=== PATIENT | female | born 1980 | race Caucasian/White ===

== ENCOUNTER 2017-05-12 21:26 | Emergency (ER) | payer OTHER ==
[~2017-05-12] VITALS: Ht 180.3 cm; Wt 117.9 kg
--- NOTE | 2017-05-12 23:06 | PHYS DOC ---
Past Medical History Past Medical History: Diabetes-Type II Additional Past Surgical Histo: C section (x2); left ankle; left wrist Smoking: Quit Less Than 1 Year Adult General Chief Complaint Chief Complaint: ABDOMINAL PAIN HPI HPI Patient is a 36 year old female who presents with pain over her incision. She is a status post , 04/16/17, at [facility] (Surgeon was Dr. Lincoln). She states she started with some pain and redness was seen in the office on Sunday. Started on Bactrim at that time. She is not breast-feeding. She returns tonight here at [place] because the pain has increased dramatically. She has difficulty sitting up because of the pain, and any walking hurts. No fever documented at home. She also been having some shortness of air with a rare cough started yesterday. No chest pain. No leg pain or swelling. Review of Systems Review of Systems Constitutional: Denies fever or chills [ Eyes: Denies change in visual acuity, redness, or eye pain HENT: Denies nasal congestion or sore throat Respiratory: some cough and shortness of breath Cardiovascular: No chest pain GI: Denies nausea, vomiting, bloody stools or diarrhea. She has pain over her lower abdomen involving the incision and spreading out laterally. : Denies dysuria or hematuria Musculoskeletal: Denies back pain or joint pain Integument: Denies rash or skin lesions Neurologic: Denies headache, focal weakness or sensory changes Current Medications Current Medications Current Medications Medications (Trade) Dose Ordered Sig/Anibal Start Time Stop Time Status Last Admin Dose Admin Clindamycin Phosphate 50 ml @ 100 mls/hr 1X ONCE 05/13/17 02:30 05/13/17 02:59 Info (Do NOT chart on this entry -- for MONITORING) 1 each PRN DAILY PRN 05/13/17 00:45 05/15/17 00:44 Iohexol (Omnipaque 300 Mg/ml) 75 ml 1X ONCE 05/13/17 01:00 05/13/17 01:01 DC 05/13/17 00:56 75 ML Sodium Chloride 1,000 ml @ 1,000 mls/hr 1X ONCE 05/13/17 00:45 05/13/17 01:44 DC 05/13/17 01:59 1,000 MLS/HR Vancomycin HCl (Vanco Per Pharmacy) 1 each PRN DAILY PRN 05/13/17 02:30 Vancomycin HCl 2 gm/Sodium Chloride 500 ml @ 250 mls/hr 1X ONCE 05/13/17 03:00 05/13/17 04:59 Allergies Allergies Allergies Coded Allergies Type Severity Reaction Last Updated Verified Penicillins Allergy Intermediate 05/12/17 Yes Sulfa (Sulfonamide Antibiotics) Allergy Intermediate 05/12/17 Yes adhesive Allergy Intermediate 05/12/17 Yes latex Allergy Intermediate 05/12/17 Yes Physical Exam Physical Exam Constitutional: Obese Well developed, well nourished, no acute distress, non- toxic appearance. HENT: Normocephalic, atraumatic, bilateral external ears normal, oropharynx moist, no oral exudates, nose normal. Eyes: PERRLA, EOMI, conjunctiva normal, no discharge. Neck: Normal range of motion, no tenderness, supple, no stridor. Cardiovascular:Heart rate regular rhythm, no murmur Lungs & Thorax: Bilateral breath sounds clear to auscultation Abdomen: Bowel sounds normal, soft, Tender along lower abdomen. Incision with swelling and induration extending 5 cm out. There is a central area that is full and fluctuant. No spontaneous drainage. Skin: Warm, dry, no erythema, no rash. Back: No tenderness, no CVA tenderness. Extremities: No tenderness, no cyanosis, no clubbing, ROM intact, no edema. Neurologic: Alert and oriented X 3, normal motor function, normal sensory function, no focal deficits noted. Psychologic: Affect normal, judgement normal, mood normal. Current Patient Data Vital Signs Vital Signs Date Time Temp Pulse Resp B/P (MAP) Pulse Ox O2 Delivery O2 Flow Rate FiO2 05/13/17 00:00 90 20 122/72 (89) 97 Room Air 05/12/17 23:00 98.1 98.1 Lab Values Laboratory Tests Test 05/12/17 23:10 05/13/17 00:13 White Blood Count 9.8 x10^3/uL (4.0-11.0) Red Blood Count 3.79 x10^6/uL (3.50-5.40) Hemoglobin 10.3 g/dL (12.0-15.5) L Hematocrit 31.9 % (36.0-47.0) L Mean Corpuscular Volume 84 fL (79-100) Mean Corpuscular Hemoglobin 27 pg (25-35) Mean Corpuscular Hemoglobin Concent 32 g/dL (31-37) Red Cell Distribution Width 15.9 % (11.5-14.5) H Platelet Count 600 x10^3/uL (140-400) H Neutrophils (%) (Auto) 77 % (31-73) H Lymphocytes (%) (Auto) 14 % (24-48) L Monocytes (%) (Auto) 7 % (0-9) Eosinophils (%) (Auto) 1 % (0-3) Basophils (%) (Auto) 1 % (0-3) Neutrophils # (Auto) 7.5 x10^3uL (1.8-7.7) Lymphocytes # (Auto) 1.4 x10^3/uL (1.0-4.8) Monocytes # (Auto) 0.7 x10^3/uL (0.0-1.1) Eosinophils # (Auto) 0.1 x10^3/uL (0.0-0.7) Basophils # (Auto) 0.1 x10^3/uL (0.0-0.2) D-Dimer (Tracee) 2.46 ug/mlFEU (0.00-0.50) H Sodium Level 140 mmol/L (136-145) Potassium Level 4.1 mmol/L (3.5-5.1) Chloride Level 102 mmol/L (98-107) Carbon Dioxide Level 29 mmol/L (21-32) Anion Gap 9 (6-14) Blood Urea Nitrogen 16 mg/dL (7-20) Creatinine 1.0 mg/dL (0.6-1.0) Estimated GFR (Cockcroft-Gault) 62.4 BUN/Creatinine Ratio 16 (6-20) Glucose Level 169 mg/dL (70-99) H Lactic Acid Level 1.0 mmol/L (0.4-2.0) Calcium Level 8.7 mg/dL (8.5-10.1) Total Bilirubin 0.1 mg/dL (0.2-1.0) L Aspartate Amino Transferase (AST) 12 U/L (15-37) L Alanine Aminotransferase (ALT) 8 U/L (14-59) L Alkaline Phosphatase 98 U/L (46-116) Total Protein 8.1 g/dL (6.4-8.2) Albumin 2.6 g/dL (3.4-5.0) L Albumin/Globulin Ratio 0.5 (1.0-1.7) L Urine Collection Type Unknown Urine Color Yellow Urine Clarity Cloudy Urine pH 6.5 Urine Specific Heiskell 1.020 Urine Protein Negative mg/dL (NEG-TRACE) Urine Glucose (UA) Negative mg/dL (NEG) Urine Ketones (Stick) Negative mg/dL (NEG) Urine Blood Trace (NEG) Urine Nitrite Negative (NEG) Urine Bilirubin Negative (NEG) Urine Urobilinogen Dipstick 1.0 mg/dL (0.2 mg/dL) Urine Leukocyte Esterase Large (NEG) Urine RBC 6-10 /HPF (0-2) Urine WBC Tntc /HPF (0-4) Urine Squamous Epithelial Cells Mod /LPF Urine Bacteria Few /HPF (0-FEW) Urine Mucus Marked /LPF Laboratory Tests 05/12/17 23:10 Laboratory Tests 05/12/17 23:10 Radiology/Procedures Radiology/Procedures [facility] [address] [place] [address] IMAGING REPORT Signed PATIENT: JACLYN TORRE ACCOUNT: [id number] : 1980 LOCATION: ER AGE: 36 SEX: F EXAM STATUS: REG ER ORD. PHYSICIAN: ATUL ELKINS MD REASON: post / c csection incision with swelling and pain ; r/o abscess PROCEDURE: CT ANGIO CHEST ABD PELVIS CT angiogram chest, abdomen and pelvis with contrast: Reason for examination: One month with redness and drainage over the area. Patient also short of breath. Helical images were obtained of the chest abdomen pelvis with intravenous administration of 75 cc Omnipaque 300 using angiographic protocol. Reconstruction was performed in sagittal and coronal planes. Exposure: One or more of the following individualized dose reduction techniques were utilized for this examination: 1. Automated exposure control 2. Adjustment of the mA and/or kV according to patient size 3. Use of iterative reconstruction technique. No abnormality seen at the thyroid gland. The trachea and mainstem bronchi show no intraluminal lesions. No abnormality seen at the esophagus. The thoracic aorta shows no aneurysmal dilatation or dissection. The heart size is normal with no pericardial effusion seen. The pulmonary arteries are not optimally opacified with contrast for evaluation of pulmonary embolus. The lung rivera are clear. No pleural effusions or pneumothorax are seen. In the abdomen, no abnormality seen at the liver, spleen, adrenal glands, or pancreas. Gallbladder is surgically absent. The abdominal aorta and inferior vena cava show no acute abnormalities. No abnormality seen at the appendix. The intestinal tract shows no abnormally dilated loops of bowel or thickened bowel askew. There is no evidence of diverticulosis or diverticulitis. No abnormalities seen at the bladder, uterus or ovaries. In the anterior abdominal wall however there is some abnormal fluid containing some air present anterior to the musculature suggesting abscess in the lower abdominal wall extending transversely approximately 18 cm, in AP dimension 4.6 cm and craniocaudally approximately 10 cm. IMPRESSION: No acute abnormality evident in the chest. Contrast timing however was not optimal for evaluation of pulmonary emboli. 18 x 4.6 x 10 cm fluid collection containing some air in the anterior abdominal wall consistent with abscess. Electronically signed by: Joao Moreno MD (05/13/2017 1:41 AM) [id number] DICTATED and SIGNED BY: JOAO MORENO MD DATE: 05/13/17 013 CC: ATUL ELKINS MD; MARY GARCIA Course & Med Decision Making Course & Med Decision Making Pertinent Labs and Imaging studies reviewed. (See chart for details) Evaluated patient upon arrival. She has 2 complaints; incisional pain and swelling and cp. She is post 04/16/17. Will check D dimer and lab 0020 AM: lab noted. D dimer elevated. CT ordered pulmonary and abd/pelvis. 0200 AM: Results back with abdominal wall abscess with some air (18 cm x 4.6 cm x 10 cm). IT HAS STARTED TO SPONTANEOUSLY DRAIN HERE IN THE ED A LARGE AMOUNT OF PURULENT MATERIAL. Would culture sent. Blood cultures pending. Vancomycin and Clindamycin dosed. 0225 AM: Contacted [facility] per patients' request for transfer. Dr Nancy Jacobsen accepted the patient in transfer. Patient is hemodynamically stable for transfer. CT copied and reports. Dragon Disclaimer Dragon Disclaimer This electronic medical record was generated, in whole or in part, using a voice recognition dictation system. Departure Departure Impression: Primary Impression: Abdominal wall abscess at site of surgical wound Additional Impression: section wound complication Disposition: 05 TRANSFER OTHER Condition: STABLE Problem Qualifiers ATUL ELKINS MD May 12, 2017 23:06
[2017-05-12 23:23] LABS: BASO # 0.1 x10^3/uL (0.0-0.2); BASO % 1 % (0-3); EOS % 1 % (0-3); HEMATOCRIT 31.9 % (36.0-47.0); HEMOGLOBIN 10.3 g/dL (12.0-15.5); LYMPH # 1.4 x10^3/uL (1.0-4.8); LYMPH % 14 % (24-48); MEAN CORPUSCULAR HEMOGLOBIN 27 pg (25-35); MEAN CORPUSCULAR HGB CONC 32 g/dL (31-37); MEAN CORPUSCULAR VOLUME 84 fL (79-100); MONO % 7 % (0-9); NEUT % 77 % (31-73); PLATELET COUNT 600 x10^3/uL (140-400); RED BLOOD COUNT 3.79 x10^6/uL (3.50-5.40); RED CELL DISTRIBUTION WIDTH 15.9 % (11.5-14.5); WHITE BLOOD COUNT 9.8 x10^3/uL (4.0-11.0)
[2017-05-12] MEDS ORDERED: IV NORMAL SALINE 1000ML BAG 1,000 ML IV SCH (23:30)
[2017-05-12 23:45] LABS: ALBUMIN 2.6 g/dL (3.4-5.0); ALBUMIN/GLOBULIN RATIO 0.5 (1.0-1.7); CALCIUM 8.7 mg/dL (8.5-10.1); GFR 62.4; POTASSIUM 4.1 mmol/L (3.5-5.1); TOTAL BILIRUBIN 0.1 mg/dL (0.2-1.0); TOTAL PROTEIN 8.1 g/dL (6.4-8.2)
[2017-05-13 00:25] LABS: BILIRUBIN,URINE NEGATIVE (NEG); GLUCOSE,URINE NEGATIVE (NEG); NITRITE,URINE NEGATIVE (NEG); PH,URINE 6.5; PROTEIN,URINE NEGATIVE (NEG-TRACE)
[2017-05-13 00:38] LABS: BACTERIA,URINE FEW /HPF (0-FEW); SQUAMOUS EPITHELIAL CELL,UR MOD /LPF; WBC,URINE TNTC /HPF (0-4)
[2017-05-13] MEDS ORDERED: CONTRAST GIVEN MC PRN (00:45)
[2017-05-13] MEDS ORDERED: IV NORMAL SALINE 1000ML BAG 1,000 ML IV ONE (00:45)
[2017-05-13] MEDS ORDERED: IOHEXOL 300 MG/ML 75 ML VIAL IV ONE (01:00)
--- NOTE | 2017-05-13 01:44 | RAD ---
CT angiogram chest, abdomen and pelvis with contrast: Reason for examination: One month with redness and drainage over the area. Patient also short of breath. Helical images were obtained of the chest abdomen pelvis with intravenous administration of 75 cc Omnipaque 300 using angiographic protocol. Reconstruction was performed in sagittal and coronal planes. Exposure: One or more of the following individualized dose reduction techniques were utilized for this examination: 1. Automated exposure control 2. Adjustment of the mA and/or kV according to patient size 3. Use of iterative reconstruction technique. No abnormality seen at the thyroid gland. The trachea and mainstem bronchi show no intraluminal lesions. No abnormality seen at the esophagus. The thoracic aorta shows no aneurysmal dilatation or dissection. The heart size is normal with no pericardial effusion seen. The pulmonary arteries are not optimally opacified with contrast for evaluation of pulmonary embolus. The lung rivera are clear. No pleural effusions or pneumothorax are seen. In the abdomen, no abnormality seen at the liver, spleen, adrenal glands, or pancreas. Gallbladder is surgically absent. The abdominal aorta and inferior vena cava show no acute abnormalities. No abnormality seen at the appendix. The intestinal tract shows no abnormally dilated loops of bowel or thickened bowel askew. There is no evidence of diverticulosis or diverticulitis. No abnormalities seen at the bladder, uterus or ovaries. In the anterior abdominal wall however there is some abnormal fluid containing some air present anterior to the musculature suggesting abscess in the lower abdominal wall extending transversely approximately 18 cm, in AP dimension 4.6 cm and craniocaudally approximately 10 cm. IMPRESSION: No acute abnormality evident in the chest. Contrast timing however was not optimal for evaluation of pulmonary emboli. 18 x 4.6 x 10 cm fluid collection containing some air in the anterior abdominal wall consistent with abscess. Electronically signed by: Otilia Lisa MD (05/13/2017 1:41 AM) [id number]
[2017-05-13] MEDS ORDERED: VANCOMYCIN PER PHARMACY MC PRN (02:30)
[2017-05-13] MEDS ORDERED: CLINDAMYCIN 900MG PREMIX 50 ML IV ONE (02:30)
[2017-05-13] MEDS ORDERED: VANCOMYCIN 2 GM in IV NORMAL SALINE 500ML BAG 500 ML IV ONE (03:00)
[2017-05-13 03:15] VITALS: BP 98/61
== END 2017-05-13 04:05 | disposition short-term general hospital (02) ==
LOC: ER 21:26
DX: O90.89 Other complications of the puerperium, not elsewhere classified (principal); L02.211 Cutaneous abscess of abdominal wall; E11.9 Type 2 diabetes mellitus without complications; Z90.49 Acquired absence of other specified parts of digestive tract; Z87.891 Personal history of nicotine dependence; Z88.0 Allergy status to penicillin; Z88.2 Allergy status to sulfonamides; Z88.8 Allergy status to other drugs, medicaments and biological substances; Z91.040 Latex allergy status
CPT/HCPCS: 36415; 71275; 74174; 80053; 81001; 83605; 85027; 85379; 87040; 87071; 87075; 87186; 87205; 96361; 96365; 96368; 99285; J3370; J3490; J7030; J7040; Q9967

== ENCOUNTER 2017-05-23 11:48 | Emergency (ER) | payer OTHER ==
[~2017-05-23] VITALS: Ht 180.3 cm; Wt 118.8 kg
--- NOTE | 2017-05-23 12:32 | PHYS DOC ---
Past Medical History Past Medical History: Diabetes-Type II Additional Past Medical Histor: post depression Past Surgical History: Cholecystectomy, , Other Additional Past Surgical Histo: C section (x2); left ankle; left wrist Alcohol Use: Rarely Drug Use: None Adult General Chief Complaint Chief Complaint: ABDOMINAL PAIN HPI HPI Patient is a 36 year old female presenting to the [facility] department for her pain over her incision site from her surgery as below. She was seen here 2 weeks ago for similar. She says that she change the packing daily and her [id number] is doing it. He says that her lower abdomen feels hard and it hurts to press on and gets her pain when she presses on it and also nausea as well. Any fevers chills vomiting dysuria hematuria abnormal vaginal bleeding or discharge. On exam her lower abdomen was hard around the drainage site. I took the packing material out and I took out at least 10 feet of packing material and then her abdomen was soft. She is a status post , 04/16/17, at [facility] (Surgeon was Dr. Lincoln) Review of Systems Review of Systems Constitutional: Denies fever or chills [] Cardiovascular: No additional information not addressed in HPI [] GI: + abdominal pain, nausea. No vomiting, bloody stools or diarrhea [] : Denies dysuria or hematuria [] Current Medications Current Medications Current Medications Medications (Trade) Dose Ordered Sig/Anibal Start Time Stop Time Status Last Admin Dose Admin Acetaminophen/ Hydrocodone Bitart (Lortab 5/325) 2 tab 1X ONCE 05/23/17 13:15 05/23/17 13:16 05/23/17 13:00 2 TAB Ondansetron HCl (Zofran Odt) 4 mg 1X ONCE 05/23/17 13:15 05/23/17 13:16 05/23/17 13:00 4 MG Allergies Allergies Allergies Coded Allergies Type Severity Reaction Last Updated Verified Penicillins Allergy Intermediate 05/23/17 Yes Sulfa (Sulfonamide Antibiotics) Allergy Intermediate 05/23/17 Yes adhesive Allergy Intermediate 05/23/17 Yes latex Allergy Intermediate 05/23/17 Yes Physical Exam Physical Exam Constitutional: Well developed, well nourished, no acute distress, non-toxic appearance. [] Cardiovascular:Heart rate regular rhythm, no murmur [] Lungs & Thorax: Bilateral breath sounds clear to auscultation [] Abdomen: Over her incision site of her there is approximate half centimeter opening and there is drainage cavity appears mostly serosanguineous with no foul-smelling purulence coming out of the wound. Skin: Warm, dry, no erythema, no cellulitis noted Current Patient Data Vital Signs Vital Signs Date Time Temp Pulse Resp B/P (MAP) Pulse Ox O2 Delivery O2 Flow Rate FiO2 05/23/17 13:00 95 20 130/63 (85) 97 Room Air 05/23/17 12:14 98.4 98.4 EKG EKG [] Radiology/Procedures Radiology/Procedures [] Course & Med Decision Making Course & Med Decision Making I spoke to her OB doctor carter, and he recommended showing her how to pack the wound appropriately and having her continue the clindamycin and prescribe her something for pain and nausea so that she can make it to her appointment in 2 days. I put approximately 18 inches of packing in which may be too much but I told her that she should decrease amount of packing each time she does it. Patient aware and agreeable with plan for discharge and verbalized understanding of the need for follow-up in 2 days in the strict ER return precautions discussed including worsening pain fevers vomiting or other general concerns. Dragon Disclaimer Dragon Disclaimer This electronic medical record was generated, in whole or in part, using a voice recognition dictation system. Departure Departure Impression: Primary Impression: Wound infection after surgery Disposition: 01 HOME, SELF-CARE Condition: GOOD Referrals: JOCELYNN SCHMITT (PCP) Patient Instructions: Wound Infection Additional Instructions: Keep your follow up in 2 days. Come back to the ED with any new or worsening concerns. Thank you! Scripts Ondansetron (ZOFRAN ODT) 4 Mg Tab.rapdis 4 MG PO BID Y for NAUSEA/VOMITING, #10 TAB Prov: SANDY RUSHING DO 05/23/17 Hydrocodone/Apap 5-325 (NORCO 5-325 TABLET) 1 Each Tablet 1 TAB PO PRN Q6HRS Y for PAIN, #14 TAB 0 Refills Prov: SANDY RUSHING DO 05/23/17 Problem Qualifiers Primary Impression: Wound infection after surgery Encounter type: subsequent encounter Qualified Codes: T81.4XXD - Infection following a procedure, subsequent encounter SANDY RUSHING DO May 23, 2017 12:32
[2017-05-23] MEDS ORDERED: HYDR-971 PO (12:51)
[2017-05-23] MEDS ORDERED: ONDA4TAB10 PO (12:51)
[2017-05-23 13:00] VITALS: BP 130/63
[2017-05-23] MEDS ORDERED: ONDANSETRON ODT 4 MG TAB.RAPDIS. PO ONE (13:15)
[2017-05-23] MEDS ORDERED: HYDROcodone/APAP 5/325MG 1 TAB TABLET PO ONE (13:15)
== END 2017-05-23 13:06 | disposition home or self-care (01) ==
LOC: ER 11:48
DX: T81.4XXA Infection following a procedure, initial encounter (principal); O24.93 Unspecified diabetes mellitus in the puerperium; O99.345 Other mental disorders complicating the puerperium; F32.9 Major depressive disorder, single episode, unspecified; Z88.0 Allergy status to penicillin; Z90.49 Acquired absence of other specified parts of digestive tract; Z91.040 Latex allergy status; Z88.2 Allergy status to sulfonamides; Z91.048 Other nonmedicinal substance allergy status
CPT/HCPCS: 99283; Q0162

== ENCOUNTER → 2017-07-10 | Outpatient (CLI) | payer OTHER ==
[~2017-07-10] MED LIST: HYDR-971 PO; ONDA4TAB10 PO
== END | disposition home or self-care (01) ==
LOC: PMGWOUND 11:34
PROVIDERS: ATTEND Emergency Medicine Undersea and Hyperbaric Medicine
DX: T81.89XD Other complications of procedures, not elsewhere classified, subsequent encounter (principal); M19.90 Unspecified osteoarthritis, unspecified site; E11.9 Type 2 diabetes mellitus without complications; F32.9 Major depressive disorder, single episode, unspecified; Z87.891 Personal history of nicotine dependence; Z72.89 Other problems related to lifestyle; Y83.8 Other surgical procedures as the cause of abnormal reaction of the patient, or of later complication, without mention of misadventure at the time of the procedure
CPT/HCPCS: 99214

== ENCOUNTER → 2017-07-17 | Outpatient (CLI) | payer OTHER | END | disposition home or self-care (01) | LOC: PMGWOUND 10:52 | PROVIDERS: ATTEND Emergency Medicine Undersea and Hyperbaric Medicine | DX: T81.89XD Other complications of procedures, not elsewhere classified, subsequent encounter (principal); M19.90 Unspecified osteoarthritis, unspecified site; F32.9 Major depressive disorder, single episode, unspecified; E11.9 Type 2 diabetes mellitus without complications; Z87.891 Personal history of nicotine dependence; Z72.89 Other problems related to lifestyle; Y83.8 Other surgical procedures as the cause of abnormal reaction of the patient, or of later complication, without mention of misadventure at the time of the procedure | CPT/HCPCS: 99213 ==

== ENCOUNTER 2018-03-11 09:44 | Emergency (ER) | payer SELFPAY, OTHER ==
[2018-03-11 10:57] LABS: ADD MAN DIFF? NO
[2018-03-11] MEDS: METOCLOPRAMIDE HCL 10 MG/2 ML VIAL. IV (11:02)
[2018-03-11 11:03] LABS: BASO % 1 % (0-3); EOS # 0.1 x10^3/uL (0.0-0.7); EOS % 2 % (0-3); HEMATOCRIT 38.1 % (36.0-47.0); HEMOGLOBIN 12.7 g/dL (12.0-15.5); LYMPH # 1.4 x10^3/uL (1.0-4.8); LYMPH % 23 % (24-48); MEAN CORPUSCULAR HEMOGLOBIN 28 pg (25-35); MEAN CORPUSCULAR HGB CONC 33 g/dL (31-37); MEAN CORPUSCULAR VOLUME 85 fL (79-100); MONO # 0.5 x10^3/uL (0.0-1.1); MONO % 7 % (0-9); NEUT # 4.3 x10^3uL (1.8-7.7); NEUT % 67 % (31-73); PLATELET COUNT 296 x10^3/uL (140-400); RED BLOOD COUNT 4.49 x10^6/uL (3.50-5.40); RED CELL DISTRIBUTION WIDTH 15.2 % (11.5-14.5); WHITE BLOOD COUNT 6.4 x10^3/uL (4.0-11.0)
[2018-03-11] MEDS: IV NORMAL SALINE 1000ML BAG 1,000 ML IV (11:03)
[2018-03-11] MEDS: diphenhydrAMINE 50 MG/ML VIAL IVP (11:04)
[2018-03-11] MEDS: fentaNYL PF VIAL 100 MCG/2 ML VIAL IV (11:07)
[2018-03-11 11:10] LABS: ANION GAP 9 (6-14); BLOOD UREA NITROGEN 15 mg/dL (7-20); BUN/CREATININE RATIO 19 (6-20); CALCIUM 8.5 mg/dL (8.5-10.1); CARBON DIOXIDE 27 mmol/L (21-32); CHLORIDE 99 mmol/L (98-107); CREATININE 0.8 mg/dL (0.6-1.0); GFR 80.3; GLUCOSE 243 mg/dL (70-99); POTASSIUM 4.1 mmol/L (3.5-5.1); SODIUM 135 mmol/L (136-145)
[2018-03-11 11:16] LABS: ALBUMIN 3.2 g/dL (3.4-5.0); ALBUMIN/GLOBULIN RATIO 0.7 (1.0-1.7); ALK PHOS 99 U/L (46-116); ALT (SGPT) 40 U/L (14-59); AST (SGOT) 27 U/L (15-37); TOTAL BILIRUBIN 0.3 mg/dL (0.2-1.0); TOTAL PROTEIN 7.7 g/dL (6.4-8.2)
[2018-03-11 11:20] LABS: URINE HCG POC HCG NEGATIVE (Negative)
[2018-03-11 11:26] LABS: BILIRUBIN,URINE NEGATIVE (NEG); CLARITY,URINE CLEAR; COLOR,URINE YELLOW; GLUCOSE,URINE NEGATIVE (NEG); NITRITE,URINE NEGATIVE (NEG); PH,URINE 6.5; PROTEIN,URINE NEGATIVE (NEG-TRACE)
[2018-03-11 11:38] LABS: BACTERIA,URINE MOD /HPF (0-FEW); SQUAMOUS EPITHELIAL CELL,UR MANY /LPF
== END 2018-03-11 12:13 | disposition home or self-care (01) ==
LOC: ER 09:44
DX: R51 Headache (principal); N39.0 Urinary tract infection, site not specified; E11.9 Type 2 diabetes mellitus without complications; Z90.710 Acquired absence of both cervix and uterus
CPT/HCPCS: 36415; 70450; 80053; 81001; 81025; 85025; 96361; 96374; 96375; 99285-25; J1200; J2765; J3010; J7030